=== PATIENT | female | born 1955 | race Caucasian/White ===

== ENCOUNTER → 2021-04-21 | Outpatient (CLI) | payer BC ==
[~2021-04-21] MED LIST: FLAGYL500 MG PO; LIPITOR TAB 1010 MG PO; OMNICEF 300 MG300 MG PO; ONDANSETRON HCL8 MG PO; VITAMIN D250000 UNIT PO
== END ==
LOC: EXRD 10:16
DX: M79.89 Other specified soft tissue disorders (principal)
CPT/HCPCS: 76882